=== PATIENT | female | born 1945 | race African-American/Black ===

== ENCOUNTER 2020-09-24 08:23 | Inpatient (IN) | payer OTHER ==
[2020-09-24 09:00] VITALS: BMI 29.0
[2020-09-24] MEDS ORDERED: ACETAMINOPHEN 1000 MG/100 ML BAG IVPB ONE (09:10)
[2020-09-24] MEDS ORDERED: ACETAMINOPHEN INJECTION 100 ML IVPB ONE (09:32)
[2020-09-24 10:12] LABS: BASO % 0.5 % (0-2.0); EOS % 0.1 % (0-4.5); HEMATOCRIT 31.5 % (32.4-45.2); HEMOGLOBIN 10.9 GM/dL (10.7-15.3); LYMPH % 9.8 % (8-40); MCH 29.2 pg (25.7-33.7); MCHC 34.5 g/dl (32.0-36.0); MEAN CELL VOLUME 84.6 fl (80-96); MONO % 10.3 % (3.8-10.2); NEUT % 79.3 % (42.8-82.8); PLATELET COUNT 370 K/MM3 (134-434); RBC 3.72 M/mm3 (3.60-5.2); RDW 16.4 % (11.6-15.6); WHITE BLOOD COUNT 7.9 K/mm3 (4.0-10.0)
[2020-09-24 10:19] LABS: INR 1.23 (0.83-1.09); PROTHROMBIN TIME (PATIENT) 14.8 SEC (9.7-13.0)
[2020-09-24 10:21] LABS: ACTIVATED PTT 27.9 SECONDS (25.2-36.5)
[2020-09-24 10:28] LABS: CHLORIDE 97 mmol/L (98-107); SODIUM 131 mmol/L (136-145)
[2020-09-24 10:30] LABS: ALBUMIN 2.9 g/dl (3.4-5.0); ANION GAP 8 MMOL/L (8-16); BLOOD UREA NITROGEN 12.1 mg/dL (7-18); CALCIUM 8.5 mg/dL (8.5-10.1); CO2 26 mmol/L (21-32); GLUCOSE,RANDOM 169 mg/dL (74-106)
[2020-09-24 10:33] LABS: CREATININE 0.8 mg/dL (0.55-1.3); SGOT/AST 42 U/L (15-37); SGPT/ALT 23 U/L (13-61)
[2020-09-24 10:35] LABS: BILIRUBIN,TOTAL 0.4 mg/dL (0.2-1); TOT PROT 7.4 g/dl (6.4-8.2)
[2020-09-24 10:36] LABS: ALK PHOS 76 U/L (45-117)
[2020-09-24] MEDS ORDERED: DEXAMETHASONE SOD PHOSPHATE 4 MG/1 ML VIAL IVPUSH ONE (11:10)
[2020-09-24] MEDS ORDERED: SODIUM CHLORIDE 0.9% 500 ML INFUS.BAG IV ONE (11:14)
[2020-09-24] MEDS ORDERED: DEXAMETHASONE SOD PHOSPHATE 10 MG/1 ML VIAL ONE (11:19)
[2020-09-24] MEDS ORDERED: CEFTRIAXONE 1 GM in DEXTROSE 5%-WATER - 100 ML IVPB ONE (12:29)
[2020-09-24] MEDS ORDERED: AZITHROMYCIN IVPB 500 MG in DEXTROSE 5%-WATER - 250 ML IVPB ONE (12:29)
[2020-09-24] MEDS ORDERED: AZITHROMYCIN IVPB 500 MG/250 ML BAG IVPB ONE (12:42)
[2020-09-24] MEDS ORDERED: cefTRIAXone SODIUM 1 GM VIAL ONE (13:24)
[2020-09-24 13:29] LABS: EPI CELLS 14 /uL (0-25.1); HYALINE CASTS 0 /uL (0-3.1); PH,URINE 6.5 (5.0-8.0); URINE APPEARANCE CLEAR; URINE BACTERIA 1263 /uL (0-1359); URINE BILIRUBIN NEGATIVE (NEGATIVE); URINE COLOR YELLOW; URINE GLUCOSE (UA) NEGATIVE (NEGATIVE); URINE KETONE NEGATIVE (NEGATIVE); URINE LEUK ESTERASE NEGATIVE (NEGATIVE); URINE NITRITE NEGATIVE (NEGATIVE); URINE PROTEIN 2+ (NEGATIVE); URINE RBC 5 /uL (0-23.9); URINE UROBILINOGEN 0.2 mg/dL (0.2-1.0); URINE WBC 15 /uL (0-25.8)
[2020-09-24] MEDS ORDERED: NITROGLYCERIN SUBLINGUAL 1/150 0.4 MG TAB SL SCH (14:00)
[2020-09-24 14:20] LABS: N-TERMINAL BNP 67.3 pg/ml (5-125)
[2020-09-24] MEDS: ENOXAPARIN NA (PORCINE) 40 MG/0.4 ML DISP.SYRIN SQ SCH (14:26)
[2020-09-24] MEDS: INSULIN SLIDING SCALE (NOVOLOG) 1 VIAL SQ SCH ×2 (17:15→22:54)
[2020-09-24] MEDS: FAMOTIDINE 20 MG TABLET PO SCH (19:05)
[2020-09-24] MEDS ORDERED: ASCORBIC ACID 500 MG TABLET (FP) ONE (22:03)
[2020-09-24] MEDS ORDERED: ATORVASTATIN CA 40 MG TABLET (FP) ONE (22:04)
[2020-09-24] MEDS ORDERED: CARVEDILOL 12.5 MG TABLET (FP) ONE (22:04)
[2020-09-24] MEDS ORDERED: ZINC SULFATE 220 MG CAPSULE (FP) ONE (22:04)
[2020-09-24] MEDS ORDERED: ACETAMINOPHEN 325 MG TABLET (FP) ONE (22:04)
[2020-09-24] MEDS ORDERED: INSULIN (LEVEMIR) 100 UNITS/ML UNITS SQ ONE (22:05)
[2020-09-24] MEDS: INSULIN (LEVEMIR) 100 UNITS/ML UNITS SQ SCH (22:54)
[2020-09-24] MEDS: ATORVASTATIN CA 40 MG TABLET (FP) PO SCH (22:54)
[2020-09-24] MEDS: ZINC SULFATE 220 MG CAPSULE (FP) PO SCH (22:54)
[2020-09-24] MEDS: CARVEDILOL 12.5 MG TABLET (FP) PO SCH (22:54)
[2020-09-24] MEDS: ASCORBIC ACID 500 MG TABLET (FP) PO SCH (22:54)
[2020-09-24] MEDS: ACETAMINOPHEN 325 MG TABLET (FP) PO PRN (22:58)
[2020-09-25 06:50] LABS: BASO % 0.3 % (0-2.0); HEMATOCRIT 32.1 % (32.4-45.2); HEMOGLOBIN 10.7 GM/dL (10.7-15.3); LYMPH % 12.9 % (8-40); MCH 28.5 pg (25.7-33.7); MCHC 33.2 g/dl (32.0-36.0); MEAN CELL VOLUME 85.7 fl (80-96); MONO % 16.2 % (3.8-10.2); NEUT % 70.6 % (42.8-82.8); PLATELET COUNT 409 K/MM3 (134-434); RBC 3.74 M/mm3 (3.60-5.2); WHITE BLOOD COUNT 4.9 K/mm3 (4.0-10.0)
[2020-09-25 06:55] LABS: INR 1.18 (0.83-1.09); PROTHROMBIN TIME (PATIENT) 14.2 SEC (9.7-13.0)
[2020-09-25 06:58] LABS: ACTIVATED PTT 26.8 SECONDS (25.2-36.5)
[2020-09-25 07:13] LABS: ALBUMIN 2.8 g/dl (3.4-5.0); BLOOD UREA NITROGEN 12.8 mg/dL (7-18); CALCIUM 8.4 mg/dL (8.5-10.1); MAGNESIUM 2.1 mg/dL (1.8-2.4)
[2020-09-25 07:16] LABS: CREATININE 0.7 mg/dL (0.55-1.3)
[2020-09-25 07:17] LABS: PHOSPHOROUS 2.9 mg/dL (2.5-4.9)
[2020-09-25 07:18] LABS: BILIRUBIN,TOTAL 0.4 mg/dL (0.2-1); TOT PROT 7.3 g/dl (6.4-8.2)
[2020-09-25] MEDS: INSULIN (LEVEMIR) 100 UNITS/ML UNITS SQ SCH ×2 (07:52→23:07)
[2020-09-25] MEDS: INSULIN SLIDING SCALE (NOVOLOG) 1 VIAL SQ SCH ×4 (07:52→23:05)
[2020-09-25] MEDS ORDERED: AZITHROMYCIN IVPB 500 MG in DEXTROSE 5%-WATER - 250 ML IVPB SCH (10:00)
[2020-09-25] MEDS ORDERED: DEXAMETHASONE SOD PHOSPHATE 4 MG/1 ML VIAL IVPUSH SCH (10:00)
[2020-09-25] MEDS ORDERED: CEFTRIAXONE 1 GM in DEXTROSE 5%-WATER - 50 ML IVPB SCH (10:00)
[2020-09-25] MEDS: ASCORBIC ACID 500 MG TABLET (FP) PO SCH ×2 (11:29→23:02)
[2020-09-25] MEDS: ENOXAPARIN NA (PORCINE) 40 MG/0.4 ML DISP.SYRIN SQ SCH (11:29)
[2020-09-25] MEDS: amLODIPine BESYLATE 10 MG TABLET (FP) PO SCH (11:29)
[2020-09-25] MEDS: FAMOTIDINE 20 MG TABLET PO SCH (11:29)
[2020-09-25] MEDS: ZINC SULFATE 220 MG CAPSULE (FP) PO SCH ×2 (11:29→23:02)
[2020-09-25] MEDS: CARVEDILOL 12.5 MG TABLET (FP) PO SCH ×2 (13:13→23:02)
[2020-09-25] MEDS ORDERED: INSULIN (LEVEMIR) 100 UNITS/ML UNITS SQ ONE (22:46)
[2020-09-25] MEDS: ACETAMINOPHEN 325 MG TABLET (FP) PO PRN (23:01)
[2020-09-25] MEDS: ATORVASTATIN CA 40 MG TABLET (FP) PO SCH (23:02)
[2020-09-26] MEDS: INSULIN (LEVEMIR) 100 UNITS/ML UNITS SQ SCH (06:48)
[2020-09-26] MEDS: INSULIN SLIDING SCALE (NOVOLOG) 1 VIAL SQ SCH ×3 (06:50→17:24)
[2020-09-26 08:37] LABS: HEMATOCRIT 33.1 % (32.4-45.2); HEMOGLOBIN 11.2 GM/dL (10.7-15.3); MCH 28.7 pg (25.7-33.7); MCHC 33.7 g/dl (32.0-36.0); MEAN CELL VOLUME 85.2 fl (80-96); MEAN PLT VOLUME 6.9 fl (7.5-11.1); PLATELET COUNT 462 K/MM3 (134-434); RBC 3.88 M/mm3 (3.60-5.2); RDW 16.1 % (11.6-15.6); WHITE BLOOD COUNT 7.4 K/mm3 (4.0-10.0)
[2020-09-26 08:47] LABS: BLOOD UREA NITROGEN 16.3 mg/dL (7-18); CALCIUM 8.7 mg/dL (8.5-10.1)
[2020-09-26 08:50] LABS: CREATININE 0.8 mg/dL (0.55-1.3)
[2020-09-26] MEDS: ASCORBIC ACID 500 MG TABLET (FP) PO SCH (09:30)
[2020-09-26] MEDS: FAMOTIDINE 20 MG TABLET PO SCH (09:30)
[2020-09-26] MEDS: CARVEDILOL 12.5 MG TABLET (FP) PO SCH (09:30)
[2020-09-26] MEDS: amLODIPine BESYLATE 10 MG TABLET (FP) PO SCH (09:30)
[2020-09-26] MEDS: ENOXAPARIN NA (PORCINE) 40 MG/0.4 ML DISP.SYRIN SQ SCH (09:30)
[2020-09-26] MEDS: ZINC SULFATE 220 MG CAPSULE (FP) PO SCH (09:30)
[2020-09-26 13:06] VITALS: BP 148/78; PULSE 68; TEMP 98.1
[2020-09-26] MEDS ORDERED: BAMLANIVIMAB 700 MG in SODIUM CHLORIDE 180 ML IVPB ONE (14:00)
[2020-09-26] MEDS ORDERED: SODIUM ZIRCONIUM CYCLOSILICATE (LOKELMA) 5 GM PACKET PO ONE (15:38)
[2020-09-26 18:41] LABS: BLOOD UREA NITROGEN 15.2 mg/dL (7-18)
[2020-09-26 18:44] LABS: CREATININE 0.9 mg/dL (0.55-1.3)
== END 2020-09-26 19:17 | disposition home or self-care (01) | DRG 137 ==
LOC: JER 08:23 → JERBED 11:17 → J6WEST-2 09-25 11:15
PROVIDERS: ATTEND Internal Medicine
DX: U07.1 COVID-19 (principal); J12.82 Pneumonia due to coronavirus disease 2019; I10 Essential (primary) hypertension; E78.5 Hyperlipidemia, unspecified; I25.10 Atherosclerotic heart disease of native coronary artery without angina pectoris; E66.9 Obesity, unspecified; Z68.29 Body mass index [BMI] 29.0-29.9, adult; E11.9 Type 2 diabetes mellitus without complications
CPT/HCPCS: 36415; 71045-TC-FY; 80048; 80053; 80061; 81003; 82550; 82553; 82728; 82962; 83036; 83605; 83615; 83721; 83735; 83880; 84100; 84484; 85025; 85027; 85379; 85610; 85730; 86140; 87040; 87086; 87804; 87899; 93005; 93010; 99285-25; C9803; J0131; M0239; Q0239; U0003

== ENCOUNTER 2022-09-09 22:19 | Inpatient (IN) | payer OTHER ==
[2022-09-09] MEDS ORDERED: METOCLOPRAMIDE HCL INJECTION 10 MG/2 ML VIAL IVPUSH ONE (23:44)
[2022-09-09] MEDS ORDERED: SODIUM CHLORIDE 0.9% 500 ML INFUS.BAG IV ONE (23:44)
[2022-09-10] MEDS ORDERED: METOCLOPRAMIDE HCL INJECTION 10 MG/2 ML VIAL ONE
[2022-09-10 00:02] LABS: BASO % 0.6 % (0-2.0); EOS % 0.8 % (0-4.5); HEMATOCRIT 12.1 % (32.4-45.2); LYMPH % 17.7 % (8-40); MCH 28.5 pg (25.7-33.7); MEAN CELL VOLUME 86.4 fl (80-96); MEAN PLT VOLUME 7.2 fl (7.5-11.1); MONO % 8.4 % (3.8-10.2); NEUT % 72.5 % (42.8-82.8); PLATELET COUNT 200 10^3/uL (134-434); RBC 1.39 M/mm3 (3.60-5.2); RDW 18.6 % (11.6-15.6); VENOUS BASE EXCESS -3.8 mmol/L (-2-2); VENOUS O2 SATURATION 97.8 % (70-80); VENOUS PCO2 34.6 mmHg (38-52); VENOUS PH 7.396 (7.310-7.410); WHITE BLOOD COUNT 10.1 K/mm3 (4.0-10.0)
[2022-09-10 00:21] LABS: INR 1.16 (0.83-1.09); PROTHROMBIN TIME (PATIENT) 13.4 SEC (9.7-13.0)
[2022-09-10 00:24] LABS: ACTIVATED PTT 24.9 SECONDS (25.2-36.5); CALCIUM 8.6 mg/dL (8.5-10.1)
[2022-09-10 00:25] LABS: ALBUMIN 2.7 g/dl (3.4-5.0); BLOOD UREA NITROGEN 47.2 mg/dL (7-18); MAGNESIUM 1.8 mg/dL (1.8-2.4)
[2022-09-10 00:28] LABS: CREATININE 1.4 mg/dL (0.55-1.3)
[2022-09-10 00:30] LABS: BILIRUBIN,TOTAL 0.2 mg/dL (0.2-1); TOT PROT 5.7 g/dl (6.4-8.2)
[2022-09-10 00:31] LABS: N-TERMINAL BNP 71.5 pg/ml (5-450)
[2022-09-10] MEDS ORDERED: PANTOPRAZOLE SODIUM 40 MG VIAL IVPUSH ONE (01:05)
[2022-09-10] MEDS ORDERED: PANTOPRAZOLE SODIUM 40 MG VIAL ONE ×2 (01:21→10:18)
[2022-09-10] MEDS ORDERED: AZITHROMYCIN IVPB 500 MG in DEXTROSE 5%-WATER - 250 ML IVPB ONE (01:23)
[2022-09-10] MEDS ORDERED: CEFTRIAXONE 1 GM in DEXTROSE 5%-WATER - 100 ML IVPB ONE (01:23)
[2022-09-10] MEDS ORDERED: CEFTRIAXONE 1 GM/50 ML BAG ONE (01:31)
[2022-09-10] MEDS ORDERED: AZITHROMYCIN IVPB 500 MG/250 ML BAG IVPB ONE (01:32)
[2022-09-10] MEDS ORDERED: FUROSEMIDE 40 MG/4 ML INJECTABLE VIAL IVPUSH ONE (04:36)
[2022-09-10] MEDS: INSULIN SLIDING SCALE (NOVOLOG) 1 VIAL SQ SCH ×4 (08:15→21:27)
[2022-09-10] MEDS ORDERED: FUROSEMIDE 40 MG/4 ML INJECTABLE VIAL ONE (08:27)
[2022-09-10] MEDS ORDERED: PANTOPRAZOLE SODIUM 40 MG VIAL IVPUSH SCH ×2 (10:00→10:45)
[2022-09-10] MEDS: SODIUM CHLORIDE 1,000 ML IV SCH (10:16)
[2022-09-10 12:17] LABS: EPI CELLS 12 /uL (0-25.1); HYALINE CASTS 3 /uL (0-3.1); URINE APPEARANCE CLEAR; URINE BACTERIA 99 /uL (0-1359); URINE BILIRUBIN NEGATIVE (NEGATIVE); URINE COLOR YELLOW; URINE GLUCOSE (UA) NEGATIVE (NEGATIVE); URINE KETONE NEGATIVE (NEGATIVE); URINE LEUK ESTERASE NEGATIVE (NEGATIVE); URINE NITRITE NEGATIVE (NEGATIVE); URINE PROTEIN NEGATIVE (NEGATIVE); URINE UROBILINOGEN 0.2 mg/dL (0.2-1.0); URINE WBC 1 /uL (0-25.8)
[2022-09-10 12:39] LABS: URINE RBC 73 /uL (0-23.9)
[2022-09-10] MEDS: LACTATED RINGERS SOLUTION 1,000 ML/1,000 ML INFUS.BAG IV SCH (13:13)
[2022-09-10] MEDS ORDERED: PANTOPRAZOLE SODIUM 80 MG in SODIUM CHLORIDE 100 ML IVPB SCH (14:15)
[2022-09-10] MEDS ORDERED: PANTOPRAZOLE SODIUM 160 MG in SODIUM CHLORIDE 290 ML IVPB SCH (15:00)
[2022-09-10 15:35] LABS: BASO % 1.1 % (0-2.0); EOS % 1.8 % (0-4.5); HEMATOCRIT 19.1 % (32.4-45.2); LYMPH % 16.5 % (8-40); MCH 28.5 pg (25.7-33.7); MCHC 33.7 g/dl (32.0-36.0); MEAN CELL VOLUME 84.7 fl (80-96); MONO % 9.1 % (3.8-10.2); NEUT % 71.5 % (42.8-82.8); PLATELET COUNT 223 10^3/uL (134-434); RBC 2.26 M/mm3 (3.60-5.2); WHITE BLOOD COUNT 12.1 K/mm3 (4.0-10.0)
[2022-09-10 15:43] LABS: HEMOGLOBIN 6.4 GM/dL (10.7-15.3)
[2022-09-10 15:55] LABS: CALCIUM 8.6 mg/dL (8.5-10.1)
[2022-09-10 15:56] LABS: BLOOD UREA NITROGEN 34.1 mg/dL (7-18)
[2022-09-10 15:58] LABS: CREATININE 1.4 mg/dL (0.55-1.3)
[2022-09-10 16:00] LABS: BILIRUBIN,TOTAL 0.8 mg/dL (0.2-1); TOT PROT 6.1 g/dl (6.4-8.2)
[2022-09-10 21:53] LABS: BASO % 0.4 % (0-2.0); EOS % 3.3 % (0-4.5); HEMATOCRIT 24.3 % (32.4-45.2); HEMOGLOBIN 8.1 GM/dL (10.7-15.3); LYMPH % 21.2 % (8-40); MCH 28.9 pg (25.7-33.7); MCHC 33.4 g/dl (32.0-36.0); MEAN CELL VOLUME 86.5 fl (80-96); MONO % 11.7 % (3.8-10.2); NEUT % 63.4 % (42.8-82.8); PLATELET COUNT 219 10^3/uL (134-434); RBC 2.81 M/mm3 (3.60-5.2); RDW 16.5 % (11.6-15.6); WHITE BLOOD COUNT 11.2 K/mm3 (4.0-10.0)
[2022-09-11 01:01] LABS: RETICULOCYTES 3.95 % (0.5-1.5)
[2022-09-11 01:01] LABS: RETICULOCYTES 3.63 % (0.5-1.5)
[2022-09-11 03:10] VITALS: BMI 26.6
[2022-09-11] MEDS: INSULIN SLIDING SCALE (NOVOLOG) 1 VIAL SQ SCH ×3 (06:05→22:50)
[2022-09-11] MEDS: SODIUM CHLORIDE 1,000 ML IV SCH (06:05)
[2022-09-11 17:29] LABS: EPI CELLS 16 /uL (0-25.1); HYALINE CASTS 0 /uL (0-3.1); PH,URINE 7.5 (5.0-8.0); URINE APPEARANCE CLEAR; URINE BACTERIA 20 /uL (0-1359); URINE BILIRUBIN NEGATIVE (NEGATIVE); URINE COLOR YELLOW; URINE GLUCOSE (UA) NEGATIVE (NEGATIVE); URINE KETONE NEGATIVE (NEGATIVE); URINE LEUK ESTERASE NEGATIVE (NEGATIVE); URINE NITRITE NEGATIVE (NEGATIVE); URINE PROTEIN 1+ (NEGATIVE); URINE WBC 4 /uL (0-25.8)
[2022-09-11 17:57] LABS: URINE RBC 4 /uL (0-23.9)
[2022-09-11] MEDS: LACTATED RINGERS SOLUTION 1,000 ML/1,000 ML INFUS.BAG IV SCH (22:43)
[2022-09-12] MEDS: INSULIN SLIDING SCALE (NOVOLOG) 1 VIAL SQ SCH ×4 (07:27→22:30)
[2022-09-12 08:23] LABS: BASO % 0.7 % (0-2.0); EOS % 3.7 % (0-4.5); HEMATOCRIT 21.5 % (32.4-45.2); HEMOGLOBIN 7.3 GM/dL (10.7-15.3); LYMPH % 24.4 % (8-40); MCH 29.9 pg (25.7-33.7); MCHC 33.8 g/dl (32.0-36.0); MEAN CELL VOLUME 88.3 fl (80-96); MONO % 11.2 % (3.8-10.2); PLATELET COUNT 242 10^3/uL (134-434); RBC 2.44 M/mm3 (3.60-5.2); RDW 16.2 % (11.6-15.6); WHITE BLOOD COUNT 8.5 K/mm3 (4.0-10.0)
[2022-09-12 08:27] LABS: CALCIUM 8.6 mg/dL (8.5-10.1)
[2022-09-12 08:28] LABS: ALBUMIN 2.9 g/dl (3.4-5.0); BLOOD UREA NITROGEN 16.2 mg/dL (7-18)
[2022-09-12 08:31] LABS: CREATININE 1.2 mg/dL (0.55-1.3)
[2022-09-12 08:32] LABS: TOT PROT 5.8 g/dl (6.4-8.2)
[2022-09-12 08:33] LABS: BILIRUBIN,TOTAL 0.7 mg/dL (0.2-1)
[2022-09-12] MEDS: PANTOPRAZOLE 40 MG TABLET PO SCH (09:39)
[2022-09-12] MEDS: amLODIPine BESYLATE 10 MG TABLET (FP) PO SCH (14:47)
[2022-09-12] MEDS: CARVEDILOL 25 MG TABLET (FP) PO SCH ×2 (14:47→21:38)
[2022-09-12] MEDS: LOSARTAN POTASSIUM 25 MG TABLET PO SCH (14:47)
[2022-09-12 15:42] LABS: HEMATOCRIT 22.7 % (32.4-45.2); HEMOGLOBIN 7.6 GM/dL (10.7-15.3); MCH 29.8 pg (25.7-33.7); MCHC 33.4 g/dl (32.0-36.0); MEAN CELL VOLUME 89.2 fl (80-96); MEAN PLT VOLUME 6.9 fl (7.5-11.1); PLATELET COUNT 246 10^3/uL (134-434); RBC 2.55 M/mm3 (3.60-5.2); RDW 16.2 % (11.6-15.6); WHITE BLOOD COUNT 8.7 K/mm3 (4.0-10.0)
[2022-09-12] MEDS: ROSUVASTATIN CA 20 MG TABLET PO SCH (21:39)
[2022-09-13] MEDS: INSULIN SLIDING SCALE (NOVOLOG) 1 VIAL SQ SCH ×4 (06:47→21:13)
[2022-09-13 08:14] LABS: HEMATOCRIT 21.9 % (32.4-45.2); HEMOGLOBIN 7.3 GM/dL (10.7-15.3); MCHC 33.4 g/dl (32.0-36.0); MEAN CELL VOLUME 89.9 fl (80-96); MEAN PLT VOLUME 6.9 fl (7.5-11.1); PLATELET COUNT 234 10^3/uL (134-434); RBC 2.44 M/mm3 (3.60-5.2); RDW 16.1 % (11.6-15.6)
[2022-09-13 08:23] LABS: CALCIUM 8.8 mg/dL (8.5-10.1)
[2022-09-13 08:24] LABS: BLOOD UREA NITROGEN 20.9 mg/dL (7-18)
[2022-09-13 08:27] LABS: CREATININE 1.4 mg/dL (0.55-1.3)
[2022-09-13] MEDS: amLODIPine BESYLATE 10 MG TABLET (FP) PO SCH (10:19)
[2022-09-13] MEDS: LOSARTAN POTASSIUM 25 MG TABLET PO SCH (10:19)
[2022-09-13] MEDS: CARVEDILOL 25 MG TABLET (FP) PO SCH ×2 (10:19→21:06)
[2022-09-13] MEDS: PANTOPRAZOLE 40 MG TABLET PO SCH (10:19)
[2022-09-13] MEDS: ROSUVASTATIN CA 20 MG TABLET PO SCH (21:06)
[2022-09-14] MEDS: INSULIN SLIDING SCALE (NOVOLOG) 1 VIAL SQ SCH ×4 (06:12→23:17)
[2022-09-14 07:25] LABS: BASO % 0.5 % (0-2.0); HEMATOCRIT 22.5 % (32.4-45.2); HEMOGLOBIN 7.4 GM/dL (10.7-15.3); LYMPH % 24.1 % (8-40); MCH 29.6 pg (25.7-33.7); MCHC 32.9 g/dl (32.0-36.0); MEAN CELL VOLUME 90.1 fl (80-96); MEAN PLT VOLUME 6.9 fl (7.5-11.1); NEUT % 60.4 % (42.8-82.8); PLATELET COUNT 240 10^3/uL (134-434); RDW 15.8 % (11.6-15.6); WHITE BLOOD COUNT 6.7 K/mm3 (4.0-10.0)
[2022-09-14 07:44] LABS: CALCIUM 8.9 mg/dL (8.5-10.1)
[2022-09-14 07:45] LABS: ALBUMIN 2.8 g/dl (3.4-5.0); BLOOD UREA NITROGEN 21.8 mg/dL (7-18)
[2022-09-14 07:48] LABS: CREATININE 1.4 mg/dL (0.55-1.3)
[2022-09-14 07:50] LABS: BILIRUBIN,TOTAL 0.5 mg/dL (0.2-1)
[2022-09-14] MEDS: amLODIPine BESYLATE 10 MG TABLET (FP) PO SCH (09:34)
[2022-09-14] MEDS: LOSARTAN POTASSIUM 25 MG TABLET PO SCH (09:34)
[2022-09-14] MEDS: PANTOPRAZOLE 40 MG TABLET PO SCH (09:34)
[2022-09-14] MEDS: CARVEDILOL 25 MG TABLET (FP) PO SCH ×2 (09:34→21:36)
[2022-09-14] MEDS: ROSUVASTATIN CA 20 MG TABLET PO SCH (21:36)
[2022-09-15] MEDS: INSULIN SLIDING SCALE (NOVOLOG) 1 VIAL SQ SCH ×3 (06:08→16:43)
[2022-09-15 07:50] LABS: HEMATOCRIT 22.9 % (32.4-45.2); HEMOGLOBIN 7.6 GM/dL (10.7-15.3); MCH 30.1 pg (25.7-33.7); MCHC 33.2 g/dl (32.0-36.0); MEAN CELL VOLUME 90.7 fl (80-96); MEAN PLT VOLUME 7.2 fl (7.5-11.1); PLATELET COUNT 247 10^3/uL (134-434); RBC 2.52 M/mm3 (3.60-5.2); RDW 16.1 % (11.6-15.6); WHITE BLOOD COUNT 6.9 K/mm3 (4.0-10.0)
[2022-09-15 08:25] LABS: ALBUMIN 2.9 g/dl (3.4-5.0); CALCIUM 9.1 mg/dL (8.5-10.1)
[2022-09-15 08:28] LABS: CREATININE 1.5 mg/dL (0.55-1.3)
[2022-09-15 08:30] LABS: BILIRUBIN,TOTAL 0.7 mg/dL (0.2-1); TOT PROT 6.2 g/dl (6.4-8.2)
[2022-09-15] MEDS: amLODIPine BESYLATE 10 MG TABLET (FP) PO SCH (10:17)
[2022-09-15] MEDS: LOSARTAN POTASSIUM 25 MG TABLET PO SCH (10:17)
[2022-09-15] MEDS: CARVEDILOL 25 MG TABLET (FP) PO SCH (10:17)
[2022-09-15] MEDS: PANTOPRAZOLE 40 MG TABLET PO SCH (10:17)
[2022-09-15 11:52] VITALS: BP 129/47; PULSE 69; RESP 20; TEMP 98.2
== END 2022-09-15 17:25 | disposition home or self-care (01) | DRG 812 ==
LOC: JER 22:19 → JERBED 09-10 01:28 → J4W 09-10 22:40
PROVIDERS: ADMIT Internal Medicine; ATTEND Internal Medicine
PROC: 30233N1 Transfusion of Nonautologous Red Blood Cells into Peripheral Vein, Percutaneous Approach (ICD-10-PCS; 2022-09-10)
PROC: 0DJ08ZZ Inspection of Upper Intestinal Tract, Via Natural or Artificial Opening Endoscopic (ICD-10-PCS; principal; 2022-09-11 14:45)
DX: D62 Acute posthemorrhagic anemia (principal); K92.2 Gastrointestinal hemorrhage, unspecified; I24.8 Other forms of acute ischemic heart disease; N17.9 Acute kidney failure, unspecified; I25.119 Atherosclerotic heart disease of native coronary artery with unspecified angina pectoris; E78.5 Hyperlipidemia, unspecified; E11.9 Type 2 diabetes mellitus without complications; N28.1 Cyst of kidney, acquired; E66.9 Obesity, unspecified; Z68.26 Body mass index [BMI] 26.0-26.9, adult; R31.9 Hematuria, unspecified; R09.02 Hypoxemia; E86.1 Hypovolemia; I13.10 Hypertensive heart and chronic kidney disease without heart failure, with stage 1 through stage 4 chronic kidney disease, or unspecified chronic kidney disease; E11.22 Type 2 diabetes mellitus with diabetic chronic kidney disease; N18.9 Chronic kidney disease, unspecified
CPT/HCPCS: 0241U-QW; 36415; 36430; 71045-TC-FY; 71250-TC; 74176-TC; 76775-TC; 76856-TC; 80048; 80053; 81003; 82272; 82570; 82607; 82728; 82746; 82803; 82962; 83021; 83540; 83550; 83615; 83735; 83880; 84156; 84443; 84466; 84484; 85025; 85027; 85045; 85610; 85660; 85730; 86850; 86900; 86901; 86922; 87086; 93005; 93010; 93306-TC; 99285-25; P9058